=== PATIENT | female | born 1945 | race Caucasian/White ===

== ENCOUNTER → 2017-01-21 | Outpatient (CLI) | payer MEDICARE ==
[2017-01-21 10:29] LABS: Uric Acid 3.5 mg/dL (3.7-7.4)
[2017-01-21 11:59] LABS: Hemoglobin A1C 6.1 % (4.2-6.1)
== END | disposition home or self-care (01) ==
LOC: LABWHC1 09:18
PROVIDERS: ATTEND Internal Medicine
DX: E78.5 Hyperlipidemia, unspecified (principal); I10 Essential (primary) hypertension; M25.561 Pain in right knee; M25.562 Pain in left knee; R73.03 Prediabetes; E03.9 Hypothyroidism, unspecified; M81.0 Age-related osteoporosis without current pathological fracture
CPT/HCPCS: 36415; 80061; 82306; 82607; 83036; 84439; 84443; 84550

== ENCOUNTER 2023-09-30 12:35 | Inpatient (IN) | payer MEDICARE, OTHER ==
--- NOTE | 2023-09-30 12:39 | ED ---
Lower Extremity Injury HPI - General Source: patient, RN notes reviewed Mode of arrival: EMS Limitations: no limitations - History of Present Illness Complaint: hip injury <Kayy Winston - Last Filed: 09/30/23 12:37> - General Source: patient, RN notes reviewed Mode of arrival: EMS Limitations: no limitations - History of Present Illness MD Complaint: hip injury <Rhonda Almaraz - Last Filed: 09/30/23 18:47> - General Chief Complaint: Fall Stated Complaint: Fall Time Seen by Provider: 09/30/23 12:37 - History of Present Illness Initial Comments: Quick Note: This is a 78-year-old female who presents to the emergency department for fall. Patient was playing pickle ball when she fell, landing on her right side. Currently has pain to the right hip. Denies hitting her head. Not taking any blood thinners. She has not been able to ambulate since the fall. (Kayy Winston) This is a 78-year-old female with emergency room for chief complaint of a fall that occurred this afternoon. Patient states that she was at the [facility] [place] when she went to hit a ball fell backwards landing on her right hip. Patient denies hitting her head or loss of consciousness at time of fall. She denies paresthesias. Patient states that she has had a difficult time bearing weight on the right hip after this event. She denies use of blood thinners. (Rhonda Almaraz) - Related Data Home Medications Medication Instructions Recorded Confirmed Atorvastatin [Lipitor] 10 mg PO HS 12/18/14 09/30/23 Krill Oil 500 mg PO DAILY 12/18/14 09/30/23 Levothyroxine Sodium [Synthroid] 50 mcg PO DIRECTED 12/18/14 09/30/23 Multivitamins, Thera [Multivitamin] 1 tab PO DAILY 12/18/14 09/30/23 Calcium Carbonate [Calcium] 600 mg PO DAILY 09/30/23 09/30/23 Colchicine 0.6 mg PO DIRECTED PRN 09/30/23 09/30/23 Glucosamine/Chondr Esquivel A Sod [Osteo 1 tab PO DAILY 09/30/23 09/30/23 Bi-Flex Caplet] L.acidoph,Paracasei, B.lactis 1 cap PO DAILY 09/30/23 09/30/23 [Probiotic] Metoprolol Succinate [Metoprolol 25 mg PO DIRECTED 09/30/23 09/30/23 Succinate ER] Omeprazole 20 mg PO AC-BRKFST 09/30/23 09/30/23 Psyllium Husk 100% [Metamucil 6 gm PO DAILY PRN 09/30/23 09/30/23 Packet] Ubidecarenone [Coenzyme Q10] 100 mg PO DAILY 09/30/23 09/30/23 calcitrioL [Rocaltrol] 0.25 mcg PO SUWE 09/30/23 09/30/23 lisinopriL 40 mg PO BID 09/30/23 09/30/23 Allergies Allergy/AdvReac Type Severity Reaction Status Date / Time prednisolone AdvReac Severe Verified 09/30/23 15:51 migraine Review of Systems ROS Other: All systems not noted in ROS Statement are negative. <Kayy Winston - Last Filed: 09/30/23 12:37> ROS Other: All systems not noted in ROS Statement are negative. <Rhonda Almaraz - Last Filed: 09/30/23 18:47> ROS Statement: Those systems with pertinent positive or pertinent negative responses have been documented in the HPI. General Exam <Kayy Winston - Last Filed: 09/30/23 12:37> General appearance: alert, in no apparent distress Head exam: Present: atraumatic, normocephalic, normal inspection Eye exam: Present: normal appearance, PERRL, EOMI. Absent: scleral icterus, conjunctival injection, periorbital swelling ENT exam: Present: normal exam, mucous membranes moist Neck exam: Present: normal inspection. Absent: tenderness, meningismus, lymphadenopathy Respiratory exam: Present: normal lung sounds bilaterally. Absent: respiratory distress, wheezes, rales, rhonchi, stridor Cardiovascular Exam: Present: regular rate, normal rhythm, normal heart sounds. Absent: systolic murmur, diastolic murmur, rubs, gallop, clicks GI/Abdominal exam: Present: soft, normal bowel sounds. Absent: distended, t enderness, guarding, rebound, rigid Right Elbow exam: Present: full ROM, tenderness (olecranon), swelling (mild edema), ecchymosis (mild bruising noted over the posterior olecranon). Absent: laceration, deformity, crepitus Right Hip exam: Present: tenderness (pain with active flexion, extension, internal and external rotation of the hip), ecchymosis. Absent: full ROM, laceration, deformity, crepitus, erythema Back exam: Present: normal inspection Neurological exam: Present: alert, oriented X3, CN II-XII intact Psychiatric exam: Present: normal affect, normal mood Skin exam: Present: warm, dry, intact, normal color. Absent: rash <Rhonda Almaraz - Last Filed: 09/30/23 18:47> - General Exam Comments Initial Comments: Visual Physical Exam Vital signs reviewed General: Well-appearing, nontoxic, no acute distress. Head: Normocephalic, atraumatic Eyes: PERRLA, EOMI ENT: Airway patent Chest: Nonlabored breathing Skin: No visual rash, normal skin tone Neuro: Alert and oriented 3 Musculoskeletal: No gross abnormalities (Kayy Winston) Course Vital Signs 09/30/23 09/30/23 12:59 16:35 Temperature 97.4 F L 98.2 F Pulse Rate 60 68 Respiratory 18 18 Rate Blood Pressure 196/82 166/90 O2 Sat by Pulse 100 100 Oximetry Medical Decision Making <Kayy Winston - Last Filed: 09/30/23 12:37> - Lab Data Result diagrams: 09/30/23 17:29 09/30/23 17:29 <Rhonda Almaraz - Last Filed: 09/30/23 18:47> - Medical Decision Making I performed the QuickNote portion of this chart. Signed Kayy Winston PA-C. (Kayy Winston) Was pt. sent in by a medical professional or institution ([facility], SILICATOR, urgent care, hospital, or [facility]...) When possible be specific @ -No Did you speak to anyone other than the patient for history (EMS, parent, family, police, friend...)? What history was obtained from this source @ -No Did you review nursing and triage notes (agree or disagree)? Why? @ -I reviewed and agree with nursing and triage notes Were old charts reviewed (outside hosp., previous admission, EMS record, old EKG, old radiological studies, urgent care reports/EKG's, [facility] records)? Report findings @ -No old charts were reviewed Differential Diagnosis (chest pain, altered mental status, abdominal pain women, abdominal pain men, vaginal bleeding, weakness, fever, dyspnea, syncope, headache, dizziness, GI bleed, back pain, seizure, CVA, palpatations, mental health, musculoskeletal)? @ -Differential Musculoskeletal Muscular strain, contusion, ligament sprain, fracture, arthritis, septic arthritis, bursitis, cellulitis, muscle spasm, nerve compression, DVT, arterial occlusion, herpes zoster, electrolyte abnormality, tumor.... This is not meant to be in all inclusive list EKG interpreted by me (3pts min.). @ -Completed at 1724, normal sinus rhythm, ventricular rate 60, SD interval 156, QTc 421. No acute signs of ischemia. X-rays interpreted by me (1pt min.). @ -X-ray of the right hip with no acute process noted. CT interpreted by me (1pt min.). @ -CT hip without contrast reveals a right anterior acetabular fracture and fracture of the right inferior pubic ramus U/S interpreted by me (1pt. min.). @ -None done What testing was considered but not performed or refused? (CT, X-rays, U/S, labs)? Why? @ -None What meds were considered but not given or refused? Why? @ -None Did you discuss the management of the patient with other professionals (pro fessionals i.e. , PA, SILICATOR, lab, RT, psych nurse, social work associate, director export, teacher, public service officer, caser)? Give summary @ -I spoke with one of the [facility] level provders with Dr. ma, Ortho specialist, who recommended the patient is able to weight-bear as tolerated with a walker. Discussion with the provider and stated that the patient is unable to bear weight on her right-hand side. At this time is recommended the patient is admitted to general medicine and orthopedic be consulted for further evaluation in the morning. I spoke with Dr. Doe who agreed with admission for the patient. She will be admitted to observation. Was smoking cessation discussed for >3mins.? @ -No Was critical care preformed (if so, how long)? @ -No Were there social determinants of health that impacted care today? How? (Homelessness, low income, unemployed, alcoholism, drug addiction, transportation, low edu. Level, literacy, decrease access to med. care, residential, rehab)? @ -No Was there de-escalation of care discussed even if they declined (Discuss DNR or withdrawal of care, Hospice)? DNR status @ -No What co-morbidities impacted this encounter? (DM, HTN, Smoking, COPD, CAD, Cancer, CVA, ARF, Chemo, Hep., AIDS, mental health diagnosis, sleep apnea, morbid obesity)? @ -None Was patient admitted / discharged? Hospital course, mention meds given and route, prescriptions, significant lab abnormalities, going to OR and other pertinent info. @ -78-year-old female with complaint of right hip pain after a fall. On examination patient noted to also have mild swelling and ecchymosis noted over the right posterior olecranon. Patient has complete range of motion of the right upper extremity and is neurovascularly intact. Patient is not concerned for acute fracture at this time therefore imaging was deferred. Review of patient's x-ray nonconcerning for fracture or dislocation. Shared decision making with the patient due to unremarkable x-ray she will be sent for CT of the hip for further evaluation due to difficulty with bearing weight of the right leg. Patient given oral Tylenol [address] results concerning for fracture, Dr. Ma Consulted at this time. Patient reevaluated and that her pain has somewhat subsided after medication. Will be admitted to observation for evaluation tomorrow with claims specialist due to fracture of the pelvis. Discussed with Dr. Hudson Undiagnosed new problem with uncertain prognosis? @ -No Drug Therapy requiring intensive monitoring for toxicity (Heparin, Nitro, Insulin, Cardizem)? @ -No Were any procedures done? @ -No Diagnosis/symptom? @ -acetabular fracture fracture of inferior pubic ramus of right hip Acute, or Chronic, or Acute on Chronic? @ -acute Uncomplicated (without systemic symptoms) or Complicated (systemic symptoms)? @ -uncomplicated Side effects of treatment? @ -No Exacerbation, Progression, or Severe Exacerbation? @ -No Poses a threat to life or bodily function? How? (Chest pain, [place], [place], pneumonia, PE, COPD, DKA, ARF, appy, cholecystitis, CVA, Diverticulitis, Homicidal, Suicidal, threat to staff... and all critical care pts) @ -No (Sung,Rhonda) - Lab Data Lab Results 09/30/23 09/30/23 09/30/23 Range/Units 17:29 17:29 17:29 WBC 14.6 H (3.8-10.6) k/uL RBC 4.11 (3.80-5.40) m/uL Hgb 12.8 (11.4-16.0) gm/dL Hct 39.6 (34.0-46.0) % MCV 96.4 (80.0-100.0) fL MCH 31.1 (25.0-35.0) pg MCHC 32.3 (31.0-37.0) g/dL RDW 12.4 (11.5-15.5) % Plt Count 244 (150-450) k/uL MPV 7.5 Neutrophils % 91 % Lymphocytes % 5 % Monocytes % 4 % Eosinophils % 0 % Basophils % 0 % Neutrophils # 13.3 H (1.3-7.7) k/uL Lymphocytes # 0.7 L (1.0-4.8) k/uL Monocytes # 0.5 (0-1.0) k/uL Eosinophils # 0.0 (0-0.7) k/uL Basophils # 0.0 (0-0.2) k/uL PT 10.6 (10.0-12.5) sec INR 1.0 (<1.2) APTT 24.2 (22.0-30.0) sec Sodium 133 L (137-145) mmol/L Potassium 4.3 (3.5-5.1) mmol/L Chloride 101 (98-107) mmol/L Carbon Dioxide 23 (22-30) mmol/L Anion Gap 9 mmol/L BUN 17 (7-17) mg/dL Creatinine 0.53 (0.52-1.04) mg/dL Est GFR (CKD-EPI)AfAm >90 (>60 ml/min/1.73 sqM) Est GFR (CKD-EPI)NonAf >90 (>60 ml/min/1.73 sqM) Glucose 109 H (74-99) mg/dL Calcium 9.4 (8.4-10.2) mg/dL Total Bilirubin 0.9 (0.2-1.3) mg/dL AST 36 (14-36) U/L ALT 35 H (4-34) U/L Alkaline Phosphatase 81 (38-126) U/L Total Protein 7.2 (6.3-8.2) g/dL Albumin 4.6 (3.5-5.0) g/dL Disposition <Kayy Winston - Last Filed: 09/30/23 12:37> Decision to Admit Reason: Admit from EC Decision Date: 09/30/23 Decision Time: 17:05 <Rhonda Almaraz - Last Filed: 09/30/23 18:47> Clinical Impression: Acetabular fracture, Pubic ramus fracture Disposition: ADMITTED IP TO THIS HOSP Condition: Fair Instructions (If sedation given, give patient instructions): Fall Prevention for Older Adults (ED) Referrals: None,Stated [REFERRING] - 1-2 days
--- NOTE | 2023-09-30 14:24 | XR ---
EXAMINATION TYPE: XR Hip Complete RT DATE OF EXAM: 09/30/2023 1:59 PM CLINICAL INDICATION:Female, 78 years old with history of Fall; PHH. Initial encounter. COMPARISON: None. TECHNIQUE: XR Hip Complete RT; hip was examined in the frontal and lateral projections and a AP pelvi s. FINDINGS: No evidence for acute process, joint dislocation or significant soft tissue swelling. IMPRESSION: No acute process.
[2023-09-30] MEDS: Acetaminophen-Codeine 300-30mg TAB PO STA (16:34)
--- NOTE | 2023-09-30 16:44 | CT ---
EXAMINATION TYPE: CT hip RT wo con DATE OF EXAM: 09/30/2023 COMPARISON: None HISTORY: Rt Hip pain, Fall, cannot ambulate, negative x-rays CT DLP: 459.1 mGycm Automated exposure control for dose reduction was used. FINDINGS: There is an acute mildly displaced comminuted fracture involving the anterior aspect of the acetabulu m. There is a nondisplaced fracture of the mid right inferior pubic ramus. The femoral head and neck are intact. The visualized sacrum and right SI joint are normal. IMPRESSION: Right anterior acetabular fracture and fracture of the right inferior pubic ramus. Right femoral head and neck intact. IMPRESSION:
--- NOTE | 2023-09-30 17:29 | XR ---
EXAMINATION TYPE: XR chest 1V portable DATE OF EXAM: 09/30/2023 COMPARISON: NONE HISTORY: Surgical clearance TECHNIQUE: Single frontal view of the chest is obtained. FINDINGS: There is no focal air space opacity, pleural effusion, or pneumothorax seen. The cardiac silhouette size is within normal limits. The osseous structures are intact. IMPRESSION: No acute process. No evidence of chronic lung disease.
[2023-09-30 17:41] LABS: Basophils % (A) 0 %; Eosinophils % (A) 0 %; HCT 39.6 % (34.0-46.0); HGB 12.8 gm/dL (11.4-16.0); Lymphocytes # (A) 0.7 k/uL (1.0-4.8); Lymphocytes % (A) 5 %; MCH 31.1 pg (25.0-35.0); MCHC 32.3 g/dL (31.0-37.0); MCV 96.4 fL (80.0-100.0); Mean Platelet Volume 7.5; Monocytes # (A) 0.5 k/uL (0-1.0); Monocytes % (A) 4 %; Neutrophils # (A) 13.3 k/uL (1.3-7.7); Neutrophils % (A) 91 %; Platelet Count 244 k/uL (150-450); RBC 4.11 m/uL (3.80-5.40); RDW 12.4 % (11.5-15.5); WBC 14.6 k/uL (3.8-10.6)
[2023-09-30 17:49] LABS: ALT 35 U/L (4-34); AST 36 U/L (14-36); African American GFR (CKD) >90 (>60 ml/min/1.73 sqM); Albumin 4.6 g/dL (3.5-5.0); Alkaline Phosphatase 81 U/L (38-126); Anion Gap 9 mmol/L; Blood Urea Nitrogen 17 mg/dL (7-17); Calcium 9.4 mg/dL (8.4-10.2); Carbon Dioxide 23 mmol/L (22-30); Chloride 101 mmol/L (98-107); Glucose 109 mg/dL (74-99); Non-African American GFR(CKD) >90 (>60 ml/min/1.73 sqM); Partial Thromboplastin Time 24.2 sec (22.0-30.0); Potassium 4.3 mmol/L (3.5-5.1); Prothrombin Time 10.6 sec (10.0-12.5); Sodium 133 mmol/L (137-145); Total Bilirubin 0.9 mg/dL (0.2-1.3); Total Protein 7.2 g/dL (6.3-8.2)
[2023-09-30] MEDS ORDERED: NALOXONE 0.4 MG/ML 1 ML VIAL IV PRN (17:49)
[2023-09-30] MEDS ORDERED: ACETAMINOPHEN TAB 325 MG TAB PO PRN (17:49)
[2023-09-30] MEDS ORDERED: COLCHICINE 0.6 MG EACH PO PRN (17:51)
[2023-09-30] MEDS: SODIUM CHLORIDE 0.9% 1,000 ML IV STA (18:41)
[2023-09-30] MEDS: Acetaminophen-Codeine 300-30mg TAB PO PRN (20:40)
[2023-09-30] MEDS: ATORVASTATIN 10 MG TAB PO SCH (20:40)
[2023-09-30] MEDS: METOPROLOL SUCCINATE (ER) 25 MG TAB.ER.24H PO SCH (20:40)
[2023-09-30] MEDS: lisinopriL 20 MG TAB PO SCH (20:40)
[2023-09-30] MEDS: ONDANSETRON 4 MG/2 ML VIAL IVP STA (20:46)
[2023-09-30] MEDS: ONDANSETRON ODT 4 MG TAB PO STA (20:47)
--- NOTE | 2023-10-01 00:55 | P.CONS ---
History of Present Illness - Reason for Consult Consult date: 10/01/23 Medical management - Chief Complaint Fall - History of Present Illness 78-year-old female with hypertension hypothyroid Patient coming in for evaluation after sustaining a fall resulting in inability to get up. She was playing pickle ball when she fell on her right side as she was trying to catch a ball she denies any head injury she denies being on any blood thinner denies any sick however she could not get up on her own and required a lot of assistance she could not weight-bear for which she was brought into the hospital for evaluation Patient denies any chest pain shortness of breath dizziness lightheadedness associated with the event she reports that she is in good health always play sports. Denies any cardiac history She denies any tobacco smoking illicit drugs or heavy alcohol In the ED imaging showed right acetabular fracture and right pubic rami fracture patient admitted to orthopedic for further evaluation review of systems Pertinent positives as noted in HPI. All other systems were reviewed and are negative on exam Constitutional: No acute distress, conversant, pleasant Eyes: Anicteric sclerae, moist conjunctiva, Pupils equal round reactive to light ENMT: NC/AT Oropharynx clear, no erythema, or exudates Neck: Supple, no masses, or JVD No carotid bruits No thyromegaly Lungs: Clear to auscultation Clear to percussion Normal respiratory effort, no accessory muscle use Cardiovascular: Heart regular in rate and rhythm, No murmurs, gallops, or rubs No peripheral edema Abdominal: Soft Nontender, no guarding, rebound or rigidity Abdomen moving with respiration Normoactive bowel sounds Extremities: No digital cyanosis No clubbing Pedal pulses intact and symmetrical Radial pulses intact and symmetrical No calf tenderness Psychiatric: Alert and oriented to person, place and time Appropriate affect fair judgement Neuro Muscles Strength 5/5 in bilateral upper extremities and left lower extremity exam of right lower extremity secondary to pain Sensation to light touch grossly present throughout Cranial nerves II-XII grossly intact Past Medical History Past Medical History: GERD/Reflux, Hyperlipidemia, Hypertension, Thyroid Disorder Additional Past Medical History / Comment(s): osteroperosis History of Any Multi-Drug Resistant Organisms: None Reported Past Surgical History: Cholecystectomy, Orthopedic Surgery, Tonsillectomy Additional Past Surgical History / Comment(s): cataracts. Past Psychological History: No Psychological Hx Reported Smoking Status: Former smoker Past Alcohol Use History: None Reported Past Drug Use History: None Reported Medications and Allergies Home Medications Medication Instructions Recorded Confirmed Type Atorvastatin [Lipitor] 10 mg PO HS 12/18/14 09/30/23 History Krill Oil 500 mg PO DAILY 12/18/14 09/30/23 History Levothyroxine Sodium [Synthroid] 50 mcg PO DIRECTED 12/18/14 09/30/23 History Multivitamins, Thera [Multivitamin] 1 tab PO DAILY 12/18/14 09/30/23 History Calcium Carbonate [Calcium] 600 mg PO DAILY 09/30/23 09/30/23 History Colchicine 0.6 mg PO DIRECTED PRN 09/30/23 09/30/23 History Glucosamine/Chondr Esquivel A Sod [Osteo 1 tab PO DAILY 09/30/23 09/30/23 History Bi-Flex Caplet] L.acidoph,Paracasei, B.lactis 1 cap PO DAILY 09/30/23 09/30/23 History [Probiotic] Metoprolol Succinate [Metoprolol 25 mg PO DIRECTED 09/30/23 09/30/23 History Succinate ER] Omeprazole 20 mg PO AC-BRKFST 09/30/23 09/30/23 History Psyllium Husk 100% [Metamucil 6 gm PO DAILY PRN 09/30/23 09/30/23 History Packet] Ubidecarenone [Coenzyme Q10] 100 mg PO DAILY 09/30/23 09/30/23 History calcitrioL [Rocaltrol] 0.25 mcg PO SUWE 09/30/23 09/30/23 History lisinopriL 40 mg PO BID 09/30/23 09/30/23 History Allergies Allergy/AdvReac Type Severity Reaction Status Date / Time prednisolone AdvReac Severe Verified 09/30/23 15:51 migraine Physical Exam Vitals: Vital Signs Temp Pulse Resp BP Pulse Ox 09/30/23 20:44 98.2 F 69 16 154/73 99 09/30/23 18:47 98.2 F 63 18 109/68 98 09/30/23 18:30 67 18 70/48 97 09/30/23 16:35 98.2 F 68 18 166/90 100 09/30/23 12:59 97.4 F L 60 18 196/82 100 Intake and Output 09/30/23 09/30/23 10/01/23 14:59 22:59 06:59 Other: Weight 61.235 kg Results CBC & Chem 7: 09/30/23 17:29 09/30/23 17:29 Labs: Abnormal Lab Results - Last 24 Hours (Table) 09/30/23 09/30/23 Range/Units 17:29 17:29 WBC 14.6 H (3.8-10.6) k/uL Neutrophils # 13.3 H (1.3-7.7) k/uL Lymphocytes # 0.7 L (1.0-4.8) k/uL Sodium 133 L (137-145) mmol/L Glucose 109 H (74-99) mg/dL ALT 35 H (4-34) U/L Assessment and Plan Assessment: 78-year-old female coming in after sustaining a fall while playing pickle ball denies any head injury denies being on any blood thinners denies any syncope. Patient denies any recent heart attack congestive heart failure arrhythmia or seizures. Patient at baseline is functional at METS more than 4 with her physical activities and playing sports on a regular basis. Patient was found to have right acetabular fracture and right pubic rami fracture. Patient might be scheduled for orthopedic surgery this is of moderate perioperative cardiovascular risk patient denies any history of stroke congestive heart failure CAD diabetes mellitus or CKD patient can proceed with moderate but acceptable perioperative cardiovascular risk factors with no modifiable risk factors at this time EKG reviewed normal sinus rhythm Blood work reviewed unremarkable sodium 133 potassium 4.3 BUN 17 creatinine 0.5, Leukocytosis most likely reactive White count 14.6 This is most likely reactive to fracture Continue to monitor Monitor vital signs, currently afebrile Chest x-ray no acute cardiopulmonary process Hip CT showed right hip acetabular fracture and pubic rami fracture Await orthopedic evaluation Hypothyroid Resume levothyroxine Hypertension Controlled Continue lisinopril metoprolol Hyperlipidemia Continue with atorvastatin Full code DVT prophylaxis heparin subcu 3 times daily 5000 units Thank you for this consultation we will continue to follow-up along with you
[2023-10-01] MEDS ORDERED: ALPRAZolam 0.25 MG TAB PO PRN (03:47)
[2023-10-01] MEDS: LEVOTHYROXINE 50 MCG TAB PO SCH (06:36)
[2023-10-01] MEDS: PANTOPRAZOLE 40 MG TABLET PO SCH (06:36)
[2023-10-01] MEDS: LACTOBACILLUS ACIDOPHILUS/PECT 1 EACH CAPSULE PO SCH (08:39)
[2023-10-01] MEDS: HEPARIN SODIUM,PORCINE 5,000 UNIT/ML 1 ML VIAL SQ SCH (08:39)
[2023-10-01] MEDS: MULTIVITAMINS, THERA 1 EACH TAB PO SCH (08:39)
[2023-10-01] MEDS: CALCIUM CARB-VIT D 500 MG-5 MCG TAB PO SCH (08:39)
[2023-10-01] MEDS ORDERED: NON FORMULARY DRUG (Krill Oil [Krill Oil] 500 MG Capsule) PO SCH (09:00)
[2023-10-01] MEDS ORDERED: NON FORMULARY DRUG (Ubidecarenone [Coenzyme Q10] 50 MG Capsule) PO SCH (09:00)
[2023-10-01] MEDS ORDERED: NON FORMULARY DRUG (Glucosamine/Chondr Su A Sod [Osteo Bi-Flex Caplet] 1 EACH Tablet) PO SCH (09:00)
[2023-10-01 11:07] LABS: HCT 36.7 % (34.0-46.0); HGB 11.9 gm/dL (11.4-16.0); MCH 31.9 pg (25.0-35.0); MCHC 32.4 g/dL (31.0-37.0); MCV 98.4 fL (80.0-100.0); Mean Platelet Volume 8.4; Platelet Count 223 k/uL (150-450); RBC 3.73 m/uL (3.80-5.40); RDW 12.5 % (11.5-15.5); WBC 6.6 k/uL (3.8-10.6)
[2023-10-01 11:39] LABS: ALT 59 U/L (4-34); AST 71 U/L (14-36); African American GFR (CKD) >90 (>60 ml/min/1.73 sqM); Albumin 3.7 g/dL (3.5-5.0); Albumin/Globulin Ratio 1.5; Alkaline Phosphatase 80 U/L (38-126); Anion Gap 11 mmol/L; Blood Urea Nitrogen 13 mg/dL (7-17); Calcium 8.6 mg/dL (8.4-10.2); Carbon Dioxide 18 mmol/L (22-30); Chloride 105 mmol/L (98-107); Globulin 2.5 g/dL; Glucose 187 mg/dL (74-99); Magnesium 1.9 mg/dL (1.6-2.3); Non-African American GFR(CKD) 87 (>60 ml/min/1.73 sqM); Potassium 3.9 mmol/L (3.5-5.1); Sodium 134 mmol/L (137-145); Total Bilirubin 1.1 mg/dL (0.2-1.3); Total Protein 6.2 g/dL (6.3-8.2)
--- NOTE | 2023-10-01 11:45 | P.CNOR ---
History of Present Illness - [facility] Consult date: 10/01/23 History of present illness: Patient is a 78-year-old female who presents to the emergency department [facility] yesterday after sustaining a fall while playing pickle ball and landing on her right hip. Orthopedics was consulted due to right hip pain as well as inferior pubic rami fracture and acetabular fracture. Patient was seen at bedside this morning lying in summary, position on 4 S. Patient says she was playing pickle ball yesterday when she fell landing on her right hip. Patient denies hitting her head or losing consciousness. Patient says she does take a baby aspirin daily as she says she did have a TIA in her past. Patient states at bedside this morning most of the pain she was having is to the right hip. CT scan was negative for any femoral neck or intertrochanteric fractures. Positive for anterior acetabular fracture as well as inferior pubic rami fracture on the right side. Patient denies any numbness or tingling down the right leg. Patient denies any other areas of pain besides the right hip. Patient denies chest pain, fever, shortness of breath, nausea, vomiting, change in vision, loss of bowel/bladder control. Past Medical History Past Medical History: GERD/Reflux, Hyperlipidemia, Hypertension, Thyroid Disorder Additional Past Medical History / Comment(s): osteroperosis History of Any Multi-Drug Resistant Organisms: None Reported Past Surgical History: Cholecystectomy, Orthopedic Surgery, Tonsillectomy Additional Past Surgical History / Comment(s): cataracts. Past Psychological History: No Psychological Hx Reported Smoking Status: Former smoker Past Alcohol Use History: None Reported Past Drug Use History: None Reported Medications and Allergies Home Medications Medication Instructions Recorded Confirmed Type Atorvastatin [Lipitor] 10 mg PO HS 12/18/14 09/30/23 History Krill Oil 500 mg PO DAILY 12/18/14 09/30/23 History Levothyroxine Sodium [Synthroid] 50 mcg PO DIRECTED 12/18/14 09/30/23 History Multivitamins, Thera [Multivitamin] 1 tab PO DAILY 12/18/14 09/30/23 History Calcium Carbonate [Calcium] 600 mg PO DAILY 09/30/23 09/30/23 History Colchicine 0.6 mg PO DIRECTED PRN 09/30/23 09/30/23 History Glucosamine/Chondr Esquivel A Sod [Osteo 1 tab PO DAILY 09/30/23 09/30/23 History Bi-Flex Caplet] L.acidoph,Paracasei, B.lactis 1 cap PO DAILY 09/30/23 09/30/23 History [Probiotic] Metoprolol Succinate [Metoprolol 25 mg PO DIRECTED 09/30/23 09/30/23 History Succinate ER] Omeprazole 20 mg PO AC-BRKFST 09/30/23 09/30/23 History Psyllium Husk 100% [Metamucil 6 gm PO DAILY PRN 09/30/23 09/30/23 History Packet] Ubidecarenone [Coenzyme Q10] 100 mg PO DAILY 09/30/23 09/30/23 History calcitrioL [Rocaltrol] 0.25 mcg PO SUWE 09/30/23 09/30/23 History lisinopriL 40 mg PO BID 09/30/23 09/30/23 History Allergies Allergy/AdvReac Type Severity Reaction Status Date / Time prednisolone AdvReac Severe Verified 09/30/23 15:51 migraine Physical Examination Negative for any open fractures, or erythema or ecchymosis. Mild swelling present to the right hip. Sensation is equal, symmetric, bilateral intact throughout the upper and lower extremities on exam. Patient does have full range of motion throughout bilateral upper extremities and left lower extremity on exam. There is moderate tenderness to palpation diffusely throughout the right hip. Nontender to palpation throughout rest exam. Patient does have limited range of motion in the right hip secondary to injury/pain. Some limited range of motion the right knee in flexion and extension secondary to pain referred to the right hip. Full range of motion throughout right ankle in dorsi/plantarflexion. 4+/5 in all major motor groups in bilateral upper extremities and left lower extremity on exam. 4-/5 in all major motor groups in right lower extremity. Radial pulse intact, 2+ bilaterally. Cap refill under 3 seconds in digits of upper extremities. DP pulses palpable bilaterally. Negative Homans bilaterally. Results - Labs Labs: Abnormal Lab Results - Last 24 Hours (Table) 09/30/23 09/30/23 10/01/23 Range/Units 17:29 17:29 09:03 WBC 14.6 H (3.8-10.6) k/uL RBC 3.73 L (3.80-5.40) m/uL Neutrophils # 13.3 H (1.3-7.7) k/uL Lymphocytes # 0.7 L (1.0-4.8) k/uL Sodium 133 L (137-145) mmol/L Glucose 109 H (74-99) mg/dL ALT 35 H (4-34) U/L H & H 09/30/23 10/01/23 Range/Units 17:29 09:03 Hgb 12.8 11.9 (11.4-16.0) gm/dL Hct 39.6 36.7 (34.0-46.0) % Coagulation 09/30/23 Range/Units 17:29 INR 1.0 (<1.2) Result Diagrams: 10/01/23 09:03 10/01/23 09:03 - Diagnostic results Hip CT: report reviewed, image reviewed (Hip CT of the right hip does reveal a right acetabular fracture anteriorly as well as right inferior pubic rami fracture. The femoral head and neck appear to be intact.) Assessment and Plan Assessment: 1. Right hip anterior acetabular fracture; right hip inferior pubic rami fracture Plan: 1. Right hip anterior acetabular fracture; right hip inferior pubic rami fracture - Hip CT of the right hip does reveal a right acetabular fracture anteriorly as well as right inferior pubic rami fracture. The femoral head and neck appear to be intact. I did discuss the findings of the exam and imaging with my attending, Dr. Ma. At this time we are not recommending any emergent/urgent orthopedic surgical intervention. We will continue conservative measures with the use of pain medication and PT/OT daily. Patient may weight- bear as tolerated with walker. Patient likely needs rehab upon discharge from the hospital. We will continue to follow patient during her stay in the hospital. 2. Patient medical management 3. Pain management -Tylenol with codeine; Tylenol 4. DVT prophylaxis -SCDs; heparin 5. GI prophylaxis -Protonix 6. PT/OT -weightbearing as tolerated with walker and assistance as needed 7. Encourage incentive spirometer use 8. Appreciate consult Time with Patient: Less than 30
--- NOTE | 2023-10-01 17:28 | P.PN ---
Subjective Progress Note Date: 10/01/23 Hospital course: Patient is a very pleasant 78-year-old female with a past medical history of hypertension, hyperlipidemia, hypothyroidism, GERD, and osteoarthritis. She is currently admitted under orthopedic surgery team status post mechanical fall while playing pickle ball which resulted in a right acetabular fracture and right pubic rami fracture. We were consulted for medical management throughout hospitalization. Physical exam: Patient seen and fully evaluated at bedside this morning. She reports mild pain to right hip and lower extremity with rest and moderate to severe pain with movement. She denies having any other complaints or needs at this time. Vital signs reviewed and stable. General: Nontoxic, no distress and appears stated age. Derm: Skin warm and dry, normal coloration for ethnicity. Head: Atraumatic, normocephalic and symmetric. Eyes: EOMs intact, no lid lag, and anicteric sclera Mouth: no lip lesions, mucus membranes moist Cardiovascular: regular rate and rhythm with normal S1S2, no murmur, positive posterior tibial pulses bilaterally, and cap refill < 2 seconds. Lungs: Respirations even, regular, and unlabored on room air. Lungs CTA bilaterally, no rhonchi, no rales, no wheezing, and no accessory muscle usage. Abdominal: soft, nontender to palpation, no guarding, no appreciable organomegaly Ext: Movement and sensation intact. No gross muscle atrophy, no edema, no contractures Neuro: Speech clear, face symmetrical and CN II-XII grossly intact with no noted focal neuro deficits Psych: Alert and oriented to person, place, time, and situation. Appropriate and pleasant affect. Assessment and Plan of Care: Mechanical fall resulting in right acetabular fracture and right pubic rami fracture -Management per primary admitting orthopedic surgery team, they are recommending no plans for surgical intervention at this time recommending rehab for PT/OT. -Discussed with orthopedic PA, orders placed for consult to Dr. Bowen for evaluation for inpatient rehab. Hyponatremia and mild elevation of liver enzymes -Unclear etiology, possibly secondary to mild dehydration. Patient to be provided with gentle IV fluid hydration with 0.9% normal saline at 100 cc/h. Order placed for repeat CMP tomorrow morning, will follow-up on sodium levels and liver enzymes. Hypertension -Continue daily medication regimen with metoprolol 25 mg twice daily and lisinopril 40 mg twice daily. Hyperlipidemia -Continue daily medication regimen with atorvastatin 10 mg nightly. Hypothyroidism -Continue daily medication regimen with levothyroxine 50 mcg daily. GERD -Continue daily medication regimen with Protonix 40 mg daily. Leukocytosis, believed to be reactive no signs of infection and resolved. Data reviewed: Morning labs reviewed and stable. CBC showing resolution of previous leukocytosis with WBC count decreasing from 14.6 down to 6.6 this morning. BMP revealing mild hyponatremia with sodium of 134 and mild hypocarbia with bicarb of 18. Blood glucose 187. Liver profile showing elevated AST of 71 and ALT of 59 otherwise normal findings. Vital signs reviewed and stable. Blood pressure 147/75, heart rate 72, respir atory rate 20, temp 99.2 F, and SpO2 O2 of 95% on room air. Thank you for allowing us to participate in the care of this pleasant patient. Do not hesitate to contact us with questions. Someone can be reached from the [facility] hospitalist group all hours of the day at [phone] or via perfect serve. Patient was seen independently by Nurse Pracitioner. This document was prepared using [employer] dictation software. Please allow for errors in roller painter, while rare they do occur. I reviewed the documentation as provided by the DELMY above, who is the original author of this note. I agree with the documented assessment and plan, with the following changes: none Objective - Vital Signs Vital signs: Vital Signs Temp 99.2 F 10/01/23 07:21 Pulse 72 10/01/23 07:21 Resp 20 10/01/23 07:21 BP 147/75 10/01/23 07:21 Pulse Ox 95 10/01/23 07:21 FiO2 Intake & Output 09/30/23 10/01/23 10/01/23 18:59 06:59 18:59 Weight 61.235 kg 61.235 kg - Labs CBC & Chem 7: 10/01/23 09:03 10/01/23 09:03 Labs: Abnormal Lab Results - Last 24 Hours (Table) 09/30/23 09/30/23 Range/Units 17:29 17:29 WBC 14.6 H (3.8-10.6) k/uL Neutrophils # 13.3 H (1.3-7.7) k/uL Lymphocytes # 0.7 L (1.0-4.8) k/uL Sodium 133 L (137-145) mmol/L Glucose 109 H (74-99) mg/dL ALT 35 H (4-34) U/L
[2023-10-01] MEDS: SODIUM CHLORIDE 0.9% 1,000 ML IV SCH (19:31)
[2023-10-02 09:53] LABS: BUN/Creat Ratio 24.14 Ratio (12.00-20.00); Blood Urea Nitrogen 16.9 mg/dL (9.0-27.0); Chloride 103 mmol/L (96-109); Glucose 112 mg/dL (70-110); Potassium 4.3 mmol/L (3.5-5.5); Sodium 136 mmol/L (135-145)
[2023-10-02 09:54] LABS: ALT 210 U/L (8-44); AST 359 U/L (13-35); Albumin 3.7 g/dL (3.8-4.9); Albumin/Globulin Ratio 2.06 Ratio (1.60-3.17); Alkaline Phosphatase 88 U/L (41-126); Calcium 8.5 mg/dL (8.7-10.3); Carbon Dioxide 21.3 mmol/L (21.6-31.8); Globulin 1.8 g/dL (1.6-3.3); Total Bilirubin 0.7 mg/dL (0.3-1.2); Total Protein 5.5 g/dL (6.2-8.2)
[2023-10-02 10:05] LABS: HCT 33.3 % (37.2-46.3); HGB 10.9 g/dL (12.0-15.0); MCH 31.1 pg (27.0-32.0); MCHC 32.7 g/dL (32.0-37.0); MCV 94.9 FL (80.0-97.0); NRBC Per 100 WBC 0 X 10*3/uL (0.00-0.01); Platelet Count 194 X 10*3/uL (140-440); RBC 3.51 X 10*6/uL (4.10-5.20); RDW 12.9 % (11.5-14.5); WBC 6.45 X 10*3/uL (4.50-10.00)
--- NOTE | 2023-10-02 13:49 | P.PN ---
Subjective Progress Note Date: 10/02/23 Principal diagnosis: Right hip anterior acetabular fracture; right hip inferior pubic rami fracture Patient was seen at bedside this morning lying summary, physician chapo bhat. Patient says that she has not urinated this morning and is concerned because she feels a fullness in her lower abdomen. Patient is hoping to work with therapy today. Patient says she has not been able to get up out of bed since coming to the hospital after sustaining the fall while playing pickle ball. Patient says there has not been any change in regards to the pain in the right hip region. Patient denies any other issues at this time. Patient denies chest pain, fever, nausea, vomiting, change in vision, loss of bowel/bladder control. Objective - Vital Signs Vital signs: Vital Signs Temp 98.2 F 10/02/23 07:30 Pulse 61 10/02/23 08:00 Resp 19 10/02/23 08:00 BP 115/67 10/02/23 07:30 Pulse Ox 96 10/02/23 07:30 FiO2 Intake & Output 10/01/23 10/02/23 10/02/23 18:59 06:59 18:59 Output Total 200 225 Balance -200 -225 Output: Urine 200 225 Other: Voiding Method External Catheter External Catheter # Voids 1 - Exam Negative for any open fractures, or erythema or ecchymosis. Mild swelling present to the right hip. Sensation is equal, symmetric, bilateral intact throughout the upper and lower extremities on exam. Patient does have full range of motion throughout bilateral upper extremities and left lower extremity on exam. There is moderate tenderness to palpation diffusely throughout the right hip. Nontender to palpation throughout rest exam. Patient does have limited range of motion in the right hip secondary to injury/pain. Some limited range of motion the right knee in flexion and extension secondary to pain referred to the right hip. Full range of motion throughout right ankle in dorsi/plantarflexion. 4+/5 in all major motor groups in bilateral upper extremities and left lower extremity on exam. 4-/5 in all major motor groups in right lower extremity. Radial pulse intact, 2+ bilaterally. Cap refill under 3 seconds in digits of upper extremities. DP pulses palpable bilaterally. N egative Homans bilaterally. - Labs CBC & Chem 7: 10/02/23 03:43 10/02/23 03:43 Labs: Abnormal Lab Results - Last 24 Hours (Table) 10/02/23 10/02/23 Range/Units 03:43 03:43 RBC 3.51 L (4.10-5.20) X 10*6/uL Hgb 10.9 L (12.0-15.0) g/dL Hct 33.3 L (37.2-46.3) % Carbon Dioxide 21.3 L (21.6-31.8) mmol/L BUN/Creatinine Ratio 24.14 H (12.00-20.00) Ratio Glucose 112 H (70-110) mg/dL Calcium 8.5 L (8.7-10.3) mg/dL AST 359 H (13-35) U/L ALT 210 H (8-44) U/L Total Protein 5.5 L (6.2-8.2) g/dL Albumin 3.7 L (3.8-4.9) g/dL Assessment and Plan Assessment: 1. Right hip anterior acetabular fracture; right hip inferior pubic rami fracture Plan: 1. Right hip anterior acetabular fracture; right hip inferior pubic rami fracture - Hip CT of the right hip does reveal a right acetabular fracture anteriorly as well as right inferior pubic rami fracture. The femoral head and neck appear to be intact. I did discuss the findings of the exam and imaging with my attending, Dr. Ma. At this time we are not recommending any emergent/urgent orthopedic surgical intervention. We will continue conservative measures with the use of pain medication and PT/OT daily. Patient may weight- bear as tolerated with walker. Patient likely needs rehab upon discharge from the hospital. We will continue to follow patient during her stay in the hospital. 2. Patient medical management 3. Pain management -Tylenol with codeine; Tylenol 4. DVT prophylaxis -SCDs; heparin 5. GI prophylaxis -Protonix 6. PT/OT -weightbearing as tolerated with walker and assistance as needed 7. Encourage incentive spirometer use Time with Patient: Less than 30
--- NOTE | 2023-10-02 14:16 | P.PN ---
Subjective Progress Note Date: 10/02/23 Hospital course: Patient is a very pleasant 78-year-old female with a past medical history of hypertension, hyperlipidemia, hypothyroidism, GERD, and osteoarthritis. She is currently admitted under orthopedic surgery team status post mechanical fall while playing pickle ball which resulted in a right acetabular fracture and right pubic rami fracture. We were consulted for medical management throughout hospitalization. Physical exam: Patient seen and fully evaluated at bedside this morning. She appears to be resting comfortably with right leg elevated on pillow. Denies any new complaints or concerns at this time. Vital signs reviewed and stable. General: Nontoxic, no distress and appears stated age. Derm: Skin warm and dry, normal coloration for ethnicity. Head: Atraumatic, normocephalic and symmetric. Eyes: EOMs intact, no lid lag, and anicteric sclera Mouth: no lip lesions, mucus membranes moist Cardiovascular: regular rate and rhythm with normal S1S2, no murmur, positive posterior tibial pulses bilaterally, and cap refill < 2 seconds. Lungs: Respirations even, regular, and unlabored on room air. Lungs CTA bilaterally, no rhonchi, no rales, no wheezing, and no accessory muscle usage. Abdominal: soft, nontender to palpation, no guarding, no appreciable organomegaly Ext: Movement and sensation intact. No gross muscle atrophy, no edema, no contractures Neuro: Speech clear, face symmetrical and CN II-XII grossly intact with no noted focal neuro deficits Psych: Alert and oriented to person, place, time, and situation. Appropriate and pleasant affect. Assessment and Plan of Care: Mechanical fall resulting in right acetabular fracture and right pubic rami fracture -Management per primary admitting orthopedic surgery team, they are recommending no plans for surgical intervention at this time recommending rehab for PT/OT. -Discussed with orthopedic PA, orders placed for consult to Dr. Bowen for evaluation for inpatient rehab. Acutely elevated liver enzymes -We will obtain a stat creatinine kinase to rule out rhabdomyolysis -Order placed for ultrasound liver to rule out any trauma from fall -Continued close monitoring with repeat morning CMP. -Continue with gentle IV fluid hydration with 0.9% normal saline at 100 cc/h. Acute blood loss anemia, stable and expected finding -Acute blood loss anemia with hemoglobin of 10.9 with initial hemoglobin of 12.8, this is likely secondary to acute fractures as stated above. No need for transfusion or further interventions at this time. -We will continue to monitor and transfuse if needed for hemoglobin less than 7. Hyponatremia, resolved with gentle IV fluid hydration. Hypertension -Continue daily medication regimen with metoprolol 25 mg twice daily and lisinopril 40 mg twice daily. Hyperlipidemia -Continue daily medication regimen with atorvastatin 10 mg nightly. Hypothyroidism -Continue daily medication regimen with levothyroxine 50 mcg daily. GERD -Continue daily medication regimen with Protonix 40 mg daily. Leukocytosis, believed to be reactive no signs of infection and resolved. Data reviewed: Morning labs reviewed and stable. CBC showing acute blood loss anemia with hemoglobin decreasing from 12.8 down to 10.9 otherwise normal findings. BMP showing resolution of hyponatremia with sodium increasing to 136. Bicarb remains slightly low at 21.3. Blood glucose 112. Liver enzymes showing further acute elevation with AST increasing to 359 and ALT of 210. Vital signs reviewed and stable. Blood pressure 147/75, heart rate 72, respiratory rate 20, temp 99.2 F, and SpO2 O2 of 95% on room air. Thank you for allowing us to participate in the care of this pleasant patient. Do not hesitate to contact us with questions. Someone can be reached from the [facility] hospitalist group all hours of the day at [phone] or via Know[employer]. Patient was seen independently by Nurse Pracitioner. This document was prepared using [employer] dictation software. Please allow for errors in experimental mechanic electrical, while rare they do occur. Larry Hoover NP rendered care for this patient independently, reviewed the findings and plan as documented in the note above. I did not physically speak with or examine the patient on this date. Objective - Vital Signs Vital signs: Vital Signs Temp 98.2 F 10/02/23 07:30 Pulse 61 10/02/23 07:30 Resp 19 10/02/23 07:30 BP 115/67 10/02/23 07:30 Pulse Ox 96 10/02/23 07:30 FiO2 Intake & Output 10/01/23 10/02/23 10/02/23 18:59 06:59 18:59 Output Total 200 225 Balance -200 -225 Output: Urine 200 225 Other: Voiding Method External Catheter # Voids 1 - Labs CBC & Chem 7: 10/02/23 03:43 10/02/23 03:43 Labs: Abnormal Lab Results - Last 24 Hours (Table) 10/01/23 10/01/23 Range/Units 09:03 09:03 RBC 3.73 L (3.80-5.40) m/uL Sodium 134 L (137-145) mmol/L Carbon Dioxide 18 L (22-30) mmol/L Glucose 187 H (74-99) mg/dL AST 71 H (14-36) U/L ALT 59 H (4-34) U/L Total Protein 6.2 L (6.3-8.2) g/dL
--- NOTE | 2023-10-02 18:49 | US ---
EXAMINATION TYPE: US liver DATE OF EXAM: 10/02/2023 COMPARISON: NONE CLINICAL INDICATION: Female, 78 years old with history of elevated liver enzymes status post fall; el evated LFTs after fall. Pt. not NPO, exam changed to stat TECHNIQUE: Multiple sonographic images of the right upper quadrant are obtained. FINDINGS: EXAM MEASUREMENTS: Liver Length: 13.6 cm Gallbladder Wall: Surgically absent CBD: obscured by overlying bowel gas Right Kidney: 10.1x4.7x5.2 cm *estimated measurements, inferior pole obscured by bowel gas* Pancreas: mostly obscured by bowel gas Liver: wnl as best visualized, scanned intercostally due to overlying bowel gas Gallbladder: Surgically absent Evidence for sonographic Teague's sign: No CBD: Obscured by overlying bowel gas Right Kidney: small 0.8x0.7x0.7cm cystic area noted. Pt. states she has known renal cyst on imaging through [place]. Inferior pole obscured by overlying bowel gas very limited exam due to overlying bowel gas IMPRESSION: 1. No evidence for acute process. 2. Probable subcentimeter right renal cortical cyst.
[2023-10-03 04:38] LABS: INR 0.9 (<1.2); Partial Thromboplastin Time 24.6 sec (22.0-30.0)
[2023-10-03 08:38] LABS: HGB 10.7 g/dL (12.0-15.0); MCH 31.1 pg (27.0-32.0); MCHC 32.4 g/dL (32.0-37.0); MCV 95.9 FL (80.0-97.0); Mean Platelet Volume 11.2 FL (9.5-12.2); NRBC Per 100 WBC 0 X 10*3/uL (0.00-0.01); Platelet Count 186 X 10*3/uL (140-440); RBC 3.44 X 10*6/uL (4.10-5.20); RDW 12.7 % (11.5-14.5); WBC 6.73 X 10*3/uL (4.50-10.00)
[2023-10-03 10:10] LABS: Magnesium 1.9 mg/dL (1.5-2.4)
[2023-10-03 10:19] LABS: ALT 255 U/L (8-44); AST 141 U/L (13-35); Albumin 3.7 g/dL (3.8-4.9); Albumin/Globulin Ratio 1.95 Ratio (1.60-3.17); Alkaline Phosphatase 106 U/L (41-126); Blood Urea Nitrogen 21.2 mg/dL (9.0-27.0); Calcium 9.2 mg/dL (8.7-10.3); Chloride 100 mmol/L (96-109); Globulin 1.9 g/dL (1.6-3.3); Glucose 131 mg/dL (70-110); Potassium 4.4 mmol/L (3.5-5.5); Sodium 134 mmol/L (135-145); Total Bilirubin 0.4 mg/dL (0.3-1.2); Total Protein 5.6 g/dL (6.2-8.2)
--- NOTE | 2023-10-03 12:31 | P.PN ---
Subjective Progress Note Date: 10/03/23 Principal diagnosis: Right hip anterior acetabular fracture; right hip inferior pubic rami fracture Patient was seen at bedside this morning sitting up in chair. Patient says she just finished working with therapy. Patient says she did end up urinating yesterday after she was concerned she would not be able to. Patient says she is having less pain to the right hip region today. Patient denies chest pain, fever, nausea, vomiting, change in vision, loss of bowel/bladder control. Objective - Vital Signs Vital signs: Vital Signs Temp 98.2 F 10/03/23 07:24 Pulse 60 10/03/23 08:50 Resp 17 10/03/23 08:50 BP 138/77 10/03/23 07:24 Pulse Ox 95 10/03/23 07:24 FiO2 Intake & Output 10/02/23 10/03/23 10/03/23 18:59 06:59 18:59 Other: Voiding Method External Catheter Bedside Commode # Voids 2 3 # Bowel Movements 1 - Exam Negative for any open fractures, or erythema or ecchymosis. Mild swelling present to the right hip. Sensation is equal, symmetric, bilateral intact throughout the upper and lower extremities on exam. Patient does have full range of motion throughout bilateral upper extremities and left lower extremity on exam. There is moderate tenderness to palpation diffusely throughout the right hip. Nontender to palpation throughout rest exam. Patient does have limited range of motion in the right hip secondary to injury/pain. Some limited range of motion the right knee in flexion and extension secondary to pain referred to the right hip. Full range of motion throughout right ankle in dorsi/plantarflexion. 4+/5 in all major motor groups in bilateral upper extremities and left lower extremity on exam. 4-/5 in all major motor groups in right lower extremity. Radial pulse intact, 2+ bilaterally. Cap refill under 3 seconds in digits of upper extremities. DP pulses palpable bilaterally. Negative Homans bilaterally. - Labs CBC & Chem 7: 10/03/23 03:24 10/03/23 03:24 Labs: Abnormal Lab Results - Last 24 Hours (Table) 10/03/23 10/03/23 Range/Units 03:24 03:24 RBC 3.44 L (4.10-5.20) X 10*6/uL Hgb 10.7 L (12.0-15.0) g/dL Hct 33.0 L (37.2-46.3) % Sodium 134 L (135-145) mmol/L Carbon Dioxide 20.0 L (21.6-31.8) mmol/L Anion Gap 14.00 H (4.00-12.00) mmol/L BUN/Creatinine Ratio 26.50 H (12.00-20.00) Ratio Glucose 131 H (70-110) mg/dL AST 141 H (13-35) U/L ALT 255 H (8-44) U/L Total Protein 5.6 L (6.2-8.2) g/dL Albumin 3.7 L (3.8-4.9) g/dL Assessment and Plan Assessment: 1. Right hip anterior acetabular fracture; right hip inferior pubic rami fracture Plan: 1. Right hip anterior acetabular fracture; right hip inferior pubic rami fracture - Hip CT of the right hip does reveal a right acetabular fracture anteriorly as well as right inferior pubic rami fracture. The femoral head and neck appear to be intact. I did discuss the findings of the exam and imaging with my attending, Dr. Ma. At this time we are not recommending any emergent/urgent orthopedic surgical intervention. We will continue conservative measures with the use of pain medication and PT/OT daily. Patient may weight- bear as tolerated with walker. Patient likely needs rehab upon discharge from the hospital. Patient stable from ortho standpoint for discharge. Orthopedics signing of at this time. Please do not hesitate to contact us for any further questions. We do recommned patient to follow up in the outpatient setting with Dr. Ma for continued care. 2. Patient medical management 3. Pain management -Tylenol with codeine; Tylenol 4. DVT prophylaxis -SCDs; heparin 5. GI prophylaxis -Protonix 6. PT/OT -weightbearing as tolerated with walker and assistance as needed 7. Encourage incentive spirometer use Time with Patient: Less than 30
--- NOTE | 2023-10-03 14:02 | P.PN ---
Subjective Progress Note Date: 10/03/23 Hospital course: Patient is a very pleasant 78-year-old female with a past medical history of hypertension, hyperlipidemia, hypothyroidism, GERD, and osteoarthritis. She is currently admitted under orthopedic surgery team status post mechanical fall while playing pickle ball which resulted in a right acetabular fracture and right pubic rami fracture. We were consulted for medical management throughout hospitalization. Physical exam: Patient seen and fully evaluated at bedside this morning. She was resting comfortably in bed this morning, free from any new complaints or concerns. Patient reports only mild pain in right hip and lower extremity which is currently controlled. She does report her pain is exacerbated significantly with movement. Vital signs reviewed and stable. General: Nontoxic, no distress and appears stated age. Derm: Skin warm and dry, normal coloration for ethnicity. Head: Atraumatic, normocephalic and symmetric. Eyes: EOMs intact, no lid lag, and anicteric sclera Mouth: no lip lesions, mucus membranes moist Cardiovascular: regular rate and rhythm with normal S1S2, no murmur, positive posterior tibial pulses bilaterally, and cap refill < 2 seconds. Lungs: Respirations even, regular, and unlabored on room air. Lungs CTA bilaterally, no rhonchi, no rales, no wheezing, and no accessory muscle usage. Abdominal: soft, nontender to palpation, no guarding, no appreciable organomegaly. No retroperitoneal bruising, no abdominal bruising. Ext: Movement and sensation intact. No gross muscle atrophy, no edema, no contractures Neuro: Speech clear, face symmetrical and CN II-XII grossly intact with no noted focal neuro deficits Psych: Alert and oriented to person, place, time, and situation. Appropriate and pleasant affect. Assessment and Plan of Care: Mechanical fall resulting in right acetabular fracture and right pubic rami fr acture -Management per primary admitting orthopedic surgery team, they are recommending no plans for surgical intervention at this time recommending rehab for PT/OT. -Discussed with orthopedic PA, orders placed for consult to Dr. Bowen for evaluation for inpatient rehab. Acutely elevated liver enzymes, improving -Creatinine kinase was normal findings resulting in 170. -Liver ultrasound unremarkable showing no evidence for acute process, did reveal a probable subcentimeter right renal cortical cyst. -Continued close monitoring with repeat morning CMP. -Continue with gentle IV fluid hydration with 0.9% normal saline at 100 cc/h. Acute blood loss anemia, stable and expected finding -Acute blood loss anemia with hemoglobin of 10.9 with initial hemoglobin of 12.8, this is likely secondary to acute fractures as stated above. No need for transfusion or further interventions at this time. -We will continue to monitor and transfuse if needed for hemoglobin less than 7. Hyponatremia, resolved with gentle IV fluid hydration. Hypertension -Continue daily medication regimen with metoprolol 25 mg twice daily and lisinopril 40 mg twice daily. Hyperlipidemia -Continue daily medication regimen with atorvastatin 10 mg nightly. Hypothyroidism -Continue daily medication regimen with levothyroxine 50 mcg daily. GERD -Continue daily medication regimen with Protonix 40 mg daily. Leukocytosis, believed to be reactive no signs of infection and resolved. Data reviewed: -Morning labs reviewed and stable. CBC showing stable normocytic anemia with hemoglobin of 10.7. Coagulation profile normal findings. BMP showing mild hyponatremia with sodium of 134, hypocarbia with bicarb of 20 and elevated anion gap of 14.00. Blood glucose 131. Magnesium 1.9. Liver profile showing improvement of liver enzymes with AST of 141, ALT of 255, and alkaline phosphatase of 106. -Vital signs reviewed and stable. Blood pressure 138/77, heart rate 60, respiratory rate 17, temp 98.2 F, and SpO2 of 95% on room air. -Liver ultrasound unremarkable showing no evidence for acute process, did reveal a probable subcentimeter right renal cortical cyst. Thank you for allowing us to participate in the care of this pleasant patient. Do not hesitate to contact us with questions. Someone can be reached from the [facility] hospitalist group all hours of the day at [phone] or via tidy serve. Patient was seen independently by Nurse Pracitioner. This document was prepared using [employer] dictation software. Please allow for errors in event decorator, while rare they do occur. Larry Hoover NP rendered care for this patient independently, reviewed the findings and plan as documented in the note above. I did not physically speak with or examine the patient on this date. Objective - Vital Signs Vital signs: Vital Signs Temp 98.1 F 10/03/23 01:05 Pulse 62 10/03/23 01:05 Resp 20 10/03/23 01:05 BP 144/75 10/03/23 01:05 Pulse Ox 95 10/03/23 01:05 FiO2 Intake & Output 04/28/24 04/29/24 04/29/24 18:59 06:59 18:59 Other: Voiding Method External Catheter # Voids 2 3 # Bowel Movements 1 - Labs CBC & Chem 7: 10/03/23 03:24 10/03/23 03:24 Labs: Abnormal Lab Results - Last 24 Hours (Table) 10/02/23 10/02/23 Range/Units 03:43 03:43 RBC 3.51 L (4.10-5.20) X 10*6/uL Hgb 10.9 L (12.0-15.0) g/dL Hct 33.3 L (37.2-46.3) % Carbon Dioxide 21.3 L (21.6-31.8) mmol/L BUN/Creatinine Ratio 24.14 H (12.00-20.00) Ratio Glucose 112 H (70-110) mg/dL Calcium 8.5 L (8.7-10.3) mg/dL AST 359 H (13-35) U/L ALT 210 H (8-44) U/L Total Protein 5.5 L (6.2-8.2) g/dL Albumin 3.7 L (3.8-4.9) g/dL
[2023-10-04 08:34] LABS: HCT 30.8 % (37.2-46.3); HGB 10.4 g/dL (12.0-15.0); MCH 31.8 pg (27.0-32.0); MCHC 33.8 g/dL (32.0-37.0); MCV 94.2 FL (80.0-97.0); Mean Platelet Volume 11.5 FL (9.5-12.2); NRBC Per 100 WBC 0 X 10*3/uL (0.00-0.01); Platelet Count 187 X 10*3/uL (140-440); RBC 3.27 X 10*6/uL (4.10-5.20); RDW 12.6 % (11.5-14.5); WBC 5.77 X 10*3/uL (4.50-10.00)
[2023-10-04 09:03] LABS: ALT 185 U/L (8-44); AST 78 U/L (13-35); Albumin 3.6 g/dL (3.8-4.9); Alkaline Phosphatase 99 U/L (41-126); BUN/Creat Ratio 26.25 Ratio (12.00-20.00); Calcium 8.5 mg/dL (8.7-10.3); Carbon Dioxide 22.6 mmol/L (21.6-31.8); Chloride 100 mmol/L (96-109); Globulin 1.8 g/dL (1.6-3.3); Glucose 112 mg/dL (70-110); Potassium 4.2 mmol/L (3.5-5.5); Sodium 133 mmol/L (135-145); Total Bilirubin 0.3 mg/dL (0.3-1.2); Total Protein 5.4 g/dL (6.2-8.2)
--- NOTE | 2023-10-04 10:29 | P.PN ---
Subjective Progress Note Date: 10/04/23 Hospital course: Patient is a very pleasant 78-year-old female with a past medical history of hypertension, hyperlipidemia, hypothyroidism, GERD, and osteoarthritis. She is currently admitted under orthopedic surgery team status post mechanical fall while playing pickle ball which resulted in a right acetabular fracture and right pubic rami fracture. We were consulted for medical management throughout hospitalization. Physical exam: Patient seen and fully evaluated at bedside this morning. Patient was sitting up in recliner at time of evaluation. She reports pain remains controlled at rest but significantly worsens upon movement and attempting to bear weight. Patient has been working with PT and awaiting evaluation by Dr. Bowen for evaluation for inpatient rehabilitation facility Vital signs reviewed and stable. General: Nontoxic, no distress and appears stated age. Derm: Skin warm and dry, normal coloration for ethnicity. Head: Atraumatic, normocephalic and symmetric. Eyes: EOMs intact, no lid lag, and anicteric sclera Mouth: no lip lesions, mucus membranes moist Cardiovascular: regular rate and rhythm with normal S1S2, no murmur, positive posterior tibial pulses bilaterally, and cap refill < 2 seconds. Lungs: Respirations even, regular, and unlabored on room air. Lungs CTA bilaterally, no rhonchi, no rales, no wheezing, and no accessory muscle usage. Abdominal: soft, nontender to palpation, no guarding, no appreciable organomegaly. No retroperitoneal bruising, no abdominal bruising. Ext: Movement and sensation intact. No gross muscle atrophy, no edema, no contractures Neuro: Speech clear, face symmetrical and CN II-XII grossly intact with no noted focal neuro deficits Psych: Alert and oriented to person, place, time, and situation. Appropriate and pleasant affect. Assessment and Plan of Care: Mechanical fall resulting in right acetabular fracture and right pubic rami fracture -Management per primary admitting orthopedic surgery team, they are recommending no plans for surgical intervention at this time recommending rehab for PT/OT. -Discussed with orthopedic PA, orders placed for consult to Dr. Bowen for evaluation for inpatient rehab. Acutely elevated liver enzymes, improving -Creatinine kinase was normal findings resulting in 170. -Liver ultrasound unremarkable showing no evidence for acute process, did reveal a probable subcentimeter right renal cortical cyst. -Continued close monitoring with repeat morning CMP. -Patient received gentle IV fluid hydration. She is tolerating oral intake well and free from any other complaints. IV fluids discontinued. Acute blood loss anemia, stable and expected finding. Acute blood loss anemia with hemoglobin of 10.4 with initial hemoglobin of 12.8, this is likely secondary to acute fractures as stated above. No need for transfusion or any further interventions at this time. We will continue to monitor and transfuse if needed for hemoglobin less than 7. Hyponatremia, patient received IV fluid hydration. Sodium currently stable at 133. Hypertension. Continue daily medication regimen with metoprolol 25 mg twice daily and lisinopril 40 mg twice daily. Hyperlipidemia. Continue daily medication regimen with atorvastatin 10 mg ni ghtly. Hypothyroidism. Continue daily medication regimen with levothyroxine 50 mcg daily. GERD. Continue daily medication regimen with Protonix 40 mg daily. Leukocytosis, believed to be reactive no signs of infection and resolved. Data reviewed: -Morning labs reviewed and stable. CBC showing stable normocytic anemia with hemoglobin of 10.4. BMP showing mild hyponatremia with sodium of 133, Blood glucose 112. Magnesium 2.0. Liver profile showing continued improvement of liver enzymes with AST of 78, ALT of 112, and alkaline phosphatase of 99. -Vital signs reviewed and stable. 132/77, heart rate 66, respiratory rate 15, temp 98.4 F, and SpO2 of 91% on room air. Thank you for allowing us to participate in the care of this pleasant patient. Do not hesitate to contact us with questions. Someone can be reached from the [facility] hospitalist group all hours of the day at [phone] or via perfect serve. Patient was seen independently by Nurse Pracitioner. This document was prepared using [email or web address] dictation software. Please allow for errors in local superintendent, while rare they do occur. Larry Hoover NP rendered care for this patient independently, reviewed the findings and plan as documented in the note above. I did not physically speak with or examine the patient on this date. Objective - Vital Signs Vital signs: Vital Signs Temp 98.4 F 10/04/23 07:27 Pulse 66 10/04/23 07:27 Resp 15 10/04/23 07:27 BP 132/77 10/04/23 07:27 Pulse Ox 91 L 10/04/23 07:27 FiO2 Intake & Output 10/03/23 10/04/23 10/04/23 18:59 06:59 18:59 Other: Voiding Method Bedside Commode Bedside Commode # Voids 3 3 - Labs CBC & Chem 7: 10/04/23 03:26 10/04/23 03:26 Labs: Abnormal Lab Results - Last 24 Hours (Table) 10/03/23 10/03/23 Range/Units 03:24 03:24 RBC 3.44 L (4.10-5.20) X 10*6/uL Hgb 10.7 L (12.0-15.0) g/dL Hct 33.0 L (37.2-46.3) % Sodium 134 L (135-145) mmol/L Carbon Dioxide 20.0 L (21.6-31.8) mmol/L Anion Gap 14.00 H (4.00-12.00) mmol/L BUN/Creatinine Ratio 26.50 H (12.00-20.00) Ratio Glucose 131 H (70-110) mg/dL AST 141 H (13-35) U/L ALT 255 H (8-44) U/L Total Protein 5.6 L (6.2-8.2) g/dL Albumin 3.7 L (3.8-4.9) g/dL
--- NOTE | 2023-10-04 13:53 | P.CONS ---
History of Present Illness - Reason for Consult Consult date: 10/04/23 Rehab needs - Chief Complaint right hip pain, difficulty walking - History of Present Illness PMR Consult PMR asked to evaluate for rehab needs. Mrs. Quintero is a pleasant 78 yo , left handed female who lives alone in a 2 story home with 2 SUZI. Bed on 2nd floor, but thinks may be able to stay on 1st floor. Was independent with mobility and ADLS, driving. She has one daughter who lives in [place]. Can get some support from friends. She has a PMH HTN, HLD, hypothyrodism, GERD and OA, came to the ED afer a fall. Was playing pickle ball with friends when she fell. Had right hip pain, imaging documented right acetabular and pubic rami fracture. Seen by orthopedic surgery and being managed conservatively, WBAT to right LE. Course has been complicated by pain management, elevated liver enzymes, anemia, and hyponatremia. Has been stabilized medically, but has had difficulty with therapies, being unable to bear weight on her leg. Pain in right leg, ok at rest, but increases with any movement. + tired as inactive. Denies GOLDBERG, dizziness at this time (had initially), CP, SOB, abdominal pain. Last BM 2 days ago. Notes typical for her, at home she uses metamucil. With therapies, she has been Min A transfers, UE ADL, toileting; limited ambulation. Review of Systems + per above, o/w all systems reviewed negative. Past Medical History Past Medical History: GERD/Reflux, Hyperlipidemia, Hypertension, Thyroid Disorder Additional Past Medical History / Comment(s): osteroperosis History of Any Multi-Drug Resistant Organisms: None Reported Past Surgical History: Cholecystectomy, Orthopedic Surgery, Tonsillectomy Additional Past Surgical History / Comment(s): cataracts. Past Psychological History: No Psychological Hx Reported Smoking Status: Former smoker Past Alcohol Use History: None Reported Past Drug Use History: None Reported Medications and Allergies Home Medications Medication Instructions Recorded Confirmed Type Atorvastatin [Lipitor] 10 mg PO HS 12/18/14 09/30/23 History Krill Oil 500 mg PO DAILY 12/18/14 09/30/23 History Levothyroxine Sodium [Synthroid] 50 mcg PO DIRECTED 12/18/14 09/30/23 History Multivitamins, Thera [Multivitamin] 1 tab PO DAILY 12/18/14 09/30/23 History Calcium Carbonate [Calcium] 600 mg PO DAILY 09/30/23 09/30/23 History Colchicine 0.6 mg PO DIRECTED PRN 09/30/23 09/30/23 History Glucosamine/Chondr Esquivel A Sod [Osteo 1 tab PO DAILY 09/30/23 09/30/23 History Bi-Flex Caplet] L.acidoph,Paracasei, B.lactis 1 cap PO DAILY 09/30/23 09/30/23 History [Probiotic] Metoprolol Succinate [Metoprolol 25 mg PO DIRECTED 09/30/23 09/30/23 History Succinate ER] Omeprazole 20 mg PO AC-BRKFST 09/30/23 09/30/23 History Psyllium Husk 100% [Metamucil 6 gm PO DAILY PRN 09/30/23 09/30/23 History Packet] Ubidecarenone [Coenzyme Q10] 100 mg PO DAILY 09/30/23 09/30/23 History calcitrioL [Rocaltrol] 0.25 mcg PO SUWE 09/30/23 09/30/23 History lisinopriL 40 mg PO BID 09/30/23 09/30/23 History Allergies Allergy/AdvReac Type Severity Reaction Status Date / Time prednisolone AdvReac Severe Verified 09/30/23 15:51 migraine Physical Exam Vitals: Vital Signs Temp Pulse Resp BP Pulse Ox 10/04/23 07:27 98.4 F 66 15 132/77 91 L 10/04/23 00:52 98.1 F 59 L 20 113/62 97 10/03/23 19:35 97.9 F 66 17 103/59 97 10/03/23 13:55 98.1 F 66 18 110/67 96 Intake and Output 10/03/23 10/04/23 10/04/23 22:59 06:59 14:59 Other: Voiding Method Bedside Commode Bedside Commode # Voids 3 3 1 Gen: NAD, alert, pleasant HEENT: PERRLA, EOMI Neck: supple Lungs: non-labored respirations, good air exchange CV: Reg rate Abd: soft, nt/nd Ext: no significant LE edema, no calf TTP Neuromuscular: A&Ox4 CN2-12 intact Speech fluent. Follows 3 step commands MMT 5/5 bilateral UE/LE except decreased right hip flexion 2/2 pain Sensation light touch intact UE/LE DTR symmetric UE/LE Finger to nose and heel to barajas intact bilaterally Skin: warm and dry. Results CBC & Chem 7: 10/04/23 03:26 10/04/23 03:26 Labs: Abnormal Lab Results - Last 24 Hours (Table) 10/04/23 10/04/23 Range/Units 03:26 03:26 RBC 3.27 L (4.10-5.20) X 10*6/uL Hgb 10.4 L (12.0-15.0) g/dL Hct 30.8 L (37.2-46.3) % Sodium 133 L (135-145) mmol/L BUN/Creatinine Ratio 26.25 H (12.00-20.00) Ratio Glucose 112 H (70-110) mg/dL Calcium 8.5 L (8.7-10.3) mg/dL AST 78 H (13-35) U/L ALT 185 H (8-44) U/L Total Protein 5.4 L (6.2-8.2) g/dL Albumin 3.6 L (3.8-4.9) g/dL Assessment and Plan Assessment: # Gait impairment s/p fall # Right acetabular and pubic rami fracture - conservative management - WBAT RLE - has been Min A with therapies- # Elevated LFT - liver ultrasound unremarkable for acute process - improved with gentle hydration # Acute blood loss anemia - monitor # Hyponatremia - improved with gentle hydration # Leukocytosis # Hypothyrodism # HTN # HLD Recommendations: - per your medical management -continue PT/OT Mrs. Church is currently below her baseline function, lives alone and unable to return home, being limited by pain. Also with elevated LFT, hyponatremia, leukocytosis. Recommend IPR given multiple fractures and need for close monitoring for her pain and comorbidities.
[2023-10-04] MEDS: PSYLLIUM HUSK 100% 6 GM PACKET PO PRN (20:02)
[2023-10-05 09:40] LABS: HCT 36.3 % (34.0-46.0); HGB 11.6 gm/dL (11.4-16.0); MCH 31.1 pg (25.0-35.0); MCV 96.9 fL (80.0-100.0); Mean Platelet Volume 7.5; Platelet Count 236 k/uL (150-450); RBC 3.74 m/uL (3.80-5.40); RDW 12.5 % (11.5-15.5)
[2023-10-05 09:52] LABS: ALT 143 U/L (4-34); AST 67 U/L (14-36); African American GFR (CKD) >90 (>60 ml/min/1.73 sqM); Albumin 3.6 g/dL (3.5-5.0); Albumin/Globulin Ratio 1.4; Alkaline Phosphatase 106 U/L (38-126); Anion Gap 7 mmol/L; Blood Urea Nitrogen 21 mg/dL (7-17); Carbon Dioxide 21 mmol/L (22-30); Chloride 103 mmol/L (98-107); Globulin 2.5 g/dL; Glucose 117 mg/dL (74-99); Magnesium 1.9 mg/dL (1.6-2.3); Non-African American GFR(CKD) 86 (>60 ml/min/1.73 sqM); Potassium 4.9 mmol/L (3.5-5.1); Sodium 131 mmol/L (137-145); Total Bilirubin 0.6 mg/dL (0.2-1.3); Total Protein 6.1 g/dL (6.3-8.2)
--- NOTE | 2023-10-05 10:44 | P.PN ---
Subjective Progress Note Date: 10/05/23 Hospital course: Patient is a very pleasant 78-year-old female with a past medical history of hypertension, hyperlipidemia, hypothyroidism, GERD, and osteoarthritis. She is currently admitted under orthopedic surgery team status post mechanical fall while playing pickle ball which resulted in a right acetabular fracture and right pubic rami fracture. We were consulted for medical management throughout hospitalization. Physical exam: Patient seen and fully evaluated at bedside this morning. Patient was sitting up in recliner and continues to state pain remains controlled at rest but signif icantly worsens upon movement and attempting to bear weight. Patient continues to work with PT and awaiting insurance authorization for placement in rehab. Vital signs reviewed and stable. General: Nontoxic, no distress and appears stated age. Derm: Skin warm and dry, normal coloration for ethnicity. Head: Atraumatic, normocephalic and symmetric. Eyes: EOMs intact, no lid lag, and anicteric sclera Mouth: no lip lesions, mucus membranes moist Cardiovascular: regular rate and rhythm with normal S1S2, no murmur, positive posterior tibial pulses bilaterally, and cap refill < 2 seconds. Lungs: Respirations even, regular, and unlabored on room air. Lungs CTA bilaterally, no rhonchi, no rales, no wheezing, and no accessory muscle usage. Abdominal: soft, nontender to palpation, no guarding, no appreciable organomegaly. No retroperitoneal bruising, no abdominal bruising. Ext: Movement and sensation intact. No gross muscle atrophy, no edema, no contractures Neuro: Speech clear, face symmetrical and CN II-XII grossly intact with no noted focal neuro deficits Psych: Alert and oriented to person, place, time, and situation. Appropriate and pleasant affect. Assessment and Plan of Care: Mechanical fall resulting in right acetabular fracture and right pubic rami fracture -Management per orthopedic surgery team, they are recommending no plans for surgical intervention at this time recommending rehab for PT/OT. -Discussed with orthopedic PA, orders placed for consult to Dr. Bowen for evaluation for inpatient rehab. Acutely elevated liver enzymes, improving. Believed to be secondary to hepatic contusion resulting from fall. -Creatinine kinase was normal findings resulting in 170. -Liver ultrasound unremarkable showing no evidence for acute process, did reveal a probable subcentimeter right renal cortical cyst. -Continued close monitoring with repeat morning CMP. -Patient received gentle IV fluid hydration. She is tolerating oral intake well and free from any other complaints. IV fluids discontinued. Acute blood loss anemia, stable and expected finding. Resolved. Hemoglobin stable at 11.6. Hyponatremia, patient received IV fluid hydration. Sodium currently stable at 131. Hypertension. Continue daily medication regimen with metoprolol 25 mg twice daily and lisinopril 40 mg twice daily. Hyperlipidemia. Continue daily medication regimen with atorvastatin 10 mg ni ghtly. Hypothyroidism. Continue daily medication regimen with levothyroxine 50 mcg daily. GERD. Continue daily medication regimen with Protonix 40 mg daily. Leukocytosis, resolved. Believed to be reactive no signs of infection and resolved. Data reviewed: -Morning labs reviewed and stable. CBC unremarkable Hemoglobin 11.6. BMP showing mild hyponatremia with sodium of 131. Liver profile showing continued improvement with AST of 67 and ALT of 143. -Vital signs reviewed and stable. Blood pressure 115/71, heart rate 64, re spiratory rate 20, temp 98.3 F, and SpO2 of 94% on room air. Thank you for allowing us to participate in the care of this pleasant patient. Do not hesitate to contact us with questions. Someone can be reached from the [facility] hospitalist group all hours of the day at [phone] or via perfect serve. Patient was seen independently by Nurse Pracitioner. This document was prepared using [employer] dictation software. Please allow for errors in rewind operator, while rare they do occur. Objective - Vital Signs Vital signs: Vital Signs Temp 97.8 F 10/05/23 01:44 Pulse 54 L 10/05/23 01:44 Resp 18 10/05/23 01:44 BP 128/71 10/05/23 01:44 Pulse Ox 95 10/05/23 01:44 FiO2 Intake & Output 10/04/23 10/05/23 10/05/23 18:59 06:59 18:59 Other: Voiding Method Bedside Commode Bedside Commode # Voids 3 5 - Labs CBC & Chem 7: 10/05/23 09:10 10/05/23 09:10 Labs: Abnormal Lab Results - Last 24 Hours (Table) 10/04/23 Range/Units 03:26 Sodium 133 L (135-145) mmol/L BUN/Creatinine Ratio 26.25 H (12.00-20.00) Ratio Glucose 112 H (70-110) mg/dL Calcium 8.5 L (8.7-10.3) mg/dL AST 78 H (13-35) U/L ALT 185 H (8-44) U/L Total Protein 5.4 L (6.2-8.2) g/dL Albumin 3.6 L (3.8-4.9) g/dL
[2023-10-05] MEDS: diphenhydrAMINE 25 MG CAP PO STA (23:07)
[2023-10-06 07:51] VITALS: TEMP 97.8
[2023-10-06 10:07] VITALS: BMI 25.4
--- NOTE | 2023-10-06 13:51 | P.DS ---
Providers Date of admission: 09/30/23 18:04 Expected date of discharge: 10/06/23 Attending physician: Troy Doe MD Consults: 09/30/23 17:49 Consult Physician Stat Consulting Provider: Andrew Ma Consult Reason/Comments: pubic ramus fracture Do you want consulting provider notified?: Already Contacted 10/01/23 17:18 Consult Physician Routine Consulting Provider: Paco Carlos Consult Reason/Comments: eval for inpatient rehab Do you want consulting provider notified?: Yes Primary care physician: Janis Iniguez MD Hospital Course: Assessment: Mechanical fall resulting in right acetabular fracture and right pubic rami fracture Acutely elevated liver enzymes, improving. Believed to be secondary to hepatic contusion resulting from fall. Acute blood loss anemia, stable and expected finding. Resolved. Hemoglobin stable at 11.6. Hyponatremia Hypertension. Hyperlipidemia. Hypothyroidism. GERD. Leukocytosis Hospital course: Patient is a very pleasant 78-year-old female with a past medical history of hypertension, hyperlipidemia, hypothyroidism, GERD, and osteoarthritis. She is currently admitted under orthopedic surgery team status post mechanical fall while playing pickle ball which resulted in a right acetabular fracture and right pubic rami fracture. We were consulted for medical management throughout hospitalization. Pt was evaluated by orthopedic surgery and determined to be non-operative. Seen by PT and pt was still having trouble with transfers from bed to chair, and therefore was an opportune candidate for SNF for rehab. Pt discharged to [facility] rehab. I spent 34 minutes coordinating this discharge Physical exam: Gen: In NAD, non-toxic HEENT: normocephalic, atraumatic, hearing acuity is intant, mucous membranes moist CVS: perfusing all extremities well, no pitting edema, Respiratory: symmetric chest expansion, no accessory muscle use, GI: soft, NTTP, ND, : no suprapubic tenderness, no CVA tenderness MSK/Derm: no rashes, cyanosis Neuro: CN II-XII intact, no motor weakness, Psych: cooperative, euthymic mood, judgment and insight is intact Patient Condition at Discharge: Fair Plan - Discharge Summary Discharge Rx Participant: Yes New Discharge Prescriptions: New Acetaminophen-Codeine 300-30mg [Tylenol w/codeine #3] 1 each PO Q4HR PRN #18 tab PRN Reason: Moderate Pain (Scale 4 To 6) Metoprolol Succinate (ER) [Toprol XL] 25 mg PO BID #60 tab Acetaminophen Tab [Tylenol] 650 mg PO Q6HR PRN tab PRN Reason: Mild Pain Or Fever > 100.5 Continue Atorvastatin [Lipitor] 10 mg PO HS Krill Oil 500 mg PO DAILY Levothyroxine Sodium [Synthroid] 50 mcg PO DIRECTED Multivitamins, Thera [Multivitamin (formulary)] 1 tab PO DAILY Psyllium Husk 100% [Metamucil Packet] 6 gm PO DAILY PRN PRN Reason: Constipation Ubidecarenone [Coenzyme Q10] 100 mg PO DAILY L.acidoph,Paracasei, B.lactis [Probiotic] 1 cap PO DAILY Glucosamine/Chondr Esquivel A Sod [Osteo Bi-Flex Caplet] 1 tab PO DAILY Colchicine 0.6 mg PO DIRECTED PRN PRN Reason: gout flare ups lisinopriL 40 mg PO BID calcitrioL [Rocaltrol] 0.25 mcg PO SUWE Calcium Carbonate [Calcium] 600 mg PO DAILY Omeprazole 20 mg PO AC-BRKFST Discontinued Metoprolol Succinate [Metoprolol Succinate ER] 25 mg PO DIRECTED Discharge Medication List Atorvastatin [Lipitor] 10 mg PO HS 12/18/14 [History] Krill Oil 500 mg PO DAILY 12/18/14 [History] Levothyroxine Sodium [Synthroid] 50 mcg PO DIRECTED 12/18/14 [History] Multivitamins, Thera [Multivitamin (formulary)] 1 tab PO DAILY 12/18/14 [History] Calcium Carbonate [Calcium] 600 mg PO DAILY 09/30/23 [History] Colchicine 0.6 mg PO DIRECTED PRN 09/30/23 [History] Glucosamine/Chondr Esquivel A Sod [Osteo Bi-Flex Caplet] 1 tab PO DAILY 09/30/23 [History] L.acidoph,Paracasei, B.lactis [Probiotic] 1 cap PO DAILY 09/30/23 [History] Omeprazole 20 mg PO AC-BRKFST 09/30/23 [History] Psyllium Husk 100% [Metamucil Packet] 6 gm PO DAILY PRN 09/30/23 [History] Ubidecarenone [Coenzyme Q10] 100 mg PO DAILY 09/30/23 [History] calcitrioL [Rocaltrol] 0.25 mcg PO SUWE 09/30/23 [History] lisinopriL 40 mg PO BID 09/30/23 [History] Acetaminophen Tab [Tylenol] 650 mg PO Q6HR PRN tab 10/06/23 [Rx] Acetaminophen-Codeine 300-30mg [Tylenol w/codeine #3] 1 each PO Q4HR PRN #18 tab 10/06/23 [Rx] Metoprolol Succinate (ER) [Toprol XL] 25 mg PO BID #60 tab 10/06/23 [Rx] Follow up Appointment(s)/Referral(s): Janis Iniguez MD [Primary Care Provider] - 1 Week ([facility] please call for follow-up appointment.) Andrew Ma DO [Doctor of Osteopathic Medicine] - 10/27/23 1:45 pm Patient Instructions/Handouts: Fall Prevention for Older Adults (ED) Activity/Diet/Wound Care/Special Instructions: Orthopedic Discharge Instructions: 1. Protected weightbearig at this time 2. Recommend use of walker at all times when ambulating 3. [facility] up at [facility] 3 weeks for clinical and x-ray evaluation
[2023-10-06 15:18] VITALS: BP 150/79; PULSE 64; RESP 18
== END 2023-10-06 15:29 | DRG 964 ==
LOC: EC 12:35 → 4SSUR 18:04 → UNDODISIN 10-06 12:50
PROVIDERS: ADMIT Student in an Organized Health Care Education/Training Program; ATTEND Student in an Organized Health Care Education/Training Program
DX: S32.591A Other specified fracture of right pubis, initial encounter for closed fracture (principal); D62 Acute posthemorrhagic anemia; S36.112A Contusion of liver, initial encounter; E87.1 Hypo-osmolality and hyponatremia; S32.401A Unspecified fracture of right acetabulum, initial encounter for closed fracture; W19.XXXA Unspecified fall, initial encounter; I10 Essential (primary) hypertension; E78.5 Hyperlipidemia, unspecified; R74.01 Elevation of levels of liver transaminase levels; K21.9 Gastro-esophageal reflux disease without esophagitis; Z79.890 Hormone replacement therapy; D72.829 Elevated white blood cell count, unspecified; E03.9 Hypothyroidism, unspecified; M19.90 Unspecified osteoarthritis, unspecified site; Y93.73 Activity, racquet and hand sports; W18.30XA Fall on same level, unspecified, initial encounter; Z79.82 Long term (current) use of aspirin; Z79.899 Other long term (current) drug therapy; Y93.89 Activity, other specified; Z88.6 Allergy status to analgesic agent; M81.0 Age-related osteoporosis without current pathological fracture; Z87.891 Personal history of nicotine dependence; Z90.49 Acquired absence of other specified parts of digestive tract
CPT/HCPCS: 36415; 71045; 73502; 76705; 80053; 82550; 83735; 85025; 85027; 85610; 85730; 93005; 96360; 99285